=== PATIENT | female | born 1975 | race Caucasian/White ===

== ENCOUNTER 2017-03-17 18:44 | Emergency (ER) | payer MEDICAID ==
[~2017-03-17] VITALS: Ht 170.2 cm; Wt 119.4 kg
[~2017-03-17 18:44] MED LIST: AMPH20TA2 PO; CIPR250T2 PO; CLON-275 PO; CLON0.1T PO; DOCU-30 PO; LISI-167 PO; LISI-170 PO; LISI1TAB7 PO; LORA-445 PO; OXYC-223 PO; PARO40TA45 PO; ZIPR80CA2 PO
[2017-03-17 18:48] VITALS: BP 138/80
[2017-03-17] MEDS ORDERED: SODIUM CHLORIDE FLUSH 10ML SYR IVF ONE (19:00)
[2017-03-17 19:25] LABS: BLOOD UREA NITROGEN 24 mg/dL (7-18)
[2017-03-17] MEDS ORDERED: POTASSIUM CHLORIDE 20 MEQ TAB.ER.PRT PO ONE (21:30)
== END 2017-03-17 21:15 | disposition home or self-care (01) ==
LOC: ED 21:09
DX: M79.605 Pain in left leg (principal); M79.604 Pain in right leg; E87.6 Hypokalemia
CPT/HCPCS: 36415; 71010; 80048; 82040; 83880; 85025; 93970; 99285

== ENCOUNTER 2017-05-29 00:54 | Emergency (ER) | payer MEDICAID ==
[~2017-05-29] VITALS: Ht 170.2 cm; Wt 107.7 kg
[2017-05-29] MEDS ORDERED: SODIUM CHLORIDE 0.9% 1,000ML IVBOLUS ONE ×2 (01:30→03:00)
[2017-05-29] MEDS ORDERED: ONDANSETRON 2MG/ML, 2ML IVPush ONE (01:30)
[2017-05-29] MEDS ORDERED: AMLO5TAB2 PO (01:30)
[2017-05-29] MEDS ORDERED: METO25TA35 PO (01:31)
[2017-05-29] MEDS ORDERED: HYDR12.58 PO (01:31)
[2017-05-29] MEDS ORDERED: ONDANSETRON 2MG/ML, 2ML ONE (01:34)
[2017-05-29 01:41] LABS: HCG UR OBC PASS
[2017-05-29 01:44] LABS: ASPARTATE AMINO TRANSFERASE 24 U/L (15-37); BLOOD UREA NITROGEN 15 mg/dL (7-18)
[2017-05-29] MEDS ORDERED: MORPHINE SULFATE 4 MG/ML, 1ML IVPush PRN (02:00)
[2017-05-29 02:50] VITALS: BP 134/108
== END 2017-05-29 03:53 | disposition home or self-care (01) ==
LOC: ED 01:25
DX: R10.13 Epigastric pain (principal); R11.2 Nausea with vomiting, unspecified; I10 Essential (primary) hypertension; Z90.49 Acquired absence of other specified parts of digestive tract; F17.200 Nicotine dependence, unspecified, uncomplicated
CPT/HCPCS: 36415; 74020; 80053; 81001; 81025; 83690; 85025; 87086; 96361; 96374; 99285; J2405; J7030